=== PATIENT | female | born 1985 | race African-American/Black ===

== ENCOUNTER 2022-06-22 21:23 | Emergency (ER) | payer SELFPAY ==
[~2022-06-22] VITALS: Ht 162.6 cm; Wt 108.9 kg
--- NOTE | 2022-06-22 21:54 | NUR ---
Dr Mcnally at bedside for MSE.
[2022-06-22] MEDS ORDERED: HYDROMORPHONE 1 MG/1 ML DISP.SYRIN IV ONE (22:00)
[2022-06-22] MEDS ORDERED: ONDANSETRON 4 MG/2 ML VIAL IV ONE (22:00)
[2022-06-22] MEDS ORDERED: ONDANSETRON 4 MG/2 ML VIAL ONE (22:15)
[2022-06-22] MEDS ORDERED: HYDROMORPHONE 1 MG/1 ML DISP.SYRIN ONE (22:15)
--- NOTE | 2022-06-22 22:22 | NUR ---
patient taken to CT
--- NOTE | 2022-06-22 22:22 | NUR ---
Patient taken to CT via gurney.
[2022-06-22 22:29] LABS: *BILIRUBIN,URIN NEGATIVE (NEGATIVE); *CLARITY,URINE CLEAR (CLEAR); *COLOR,URINE YELLOW (YELLOW); *KETONES,URINE TRACE (NEGATIVE); *UROBILINOGEN,URINE 0.2 E.U./dl (NORMAL); LEUKOCYTE ESTERASE ,URINE NEGATIVE (NEGATIVE); NITRITE, URINE NEGATIVE (NEGATIVE); PH,URINE 5.5 (5.0-8.0); UGLUCOSE NEGATIVE (NEGATIVE)
[2022-06-22 22:30] LABS: CREATININE 0.7 mg/dL (0.6-1.3); POTASSIUM 3.3 mmol/L (3.5-5.1)
[2022-06-22 22:31] LABS: *BLOOD, URINE TRACE INTACT (NEGATIVE); *URINE HCG, QUAL NEGATIVE (NEGATIVE)
[2022-06-22 22:34] LABS: HEMATOCRIT 31.9 % (31.2-41.9); MEAN CORPUSCULAR HEMOGLOBIN 25.2 uug (24.7-32.8); MEAN CORPUSCULAR VOLUME 77.6 fL (75.5-95.3); PLATELET COUNT (AUTO) 405 K/uL (179-408)
[2022-06-22 22:35] LABS: BILIRUBIN,TOTAL 0.3 mg/dL (0.2-1.0); TOTAL PROTEIN, SERUM 7.3 g/dL (6.4-8.2)
[2022-06-22 22:38] LABS: BACTERIA,URINE NONE SEEN /HPF (NONE SEEN); SQUAMOUS EPITHELIAL CELL,UR FEW /HPF (NONE SEEN)
[2022-06-22] MEDS ORDERED: ONDA4TAB5 PO (23:26)
[2022-06-22] MEDS ORDERED: HYDR-4209 PO (23:26)
--- NOTE | 2022-06-22 23:33 | NUR ---
Patient discharged to home in stable condition. Written and verbal after care instructions given. Patient verbalizes understanding of instructions. Stressed follow up or return to ER for worsening s/s. Patient is a/ox4, NAD noted. Patient is able to walk with steady gait
[2022-06-22 23:34] VITALS: BP 118/78
== END 2022-06-22 23:35 | disposition home or self-care (01) ==
LOC: ER 21:29
DX: R10.9 Unspecified abdominal pain (principal); R80.9 Proteinuria, unspecified
CPT/HCPCS: 99284; 74176; 96374; 96375; 80053; 81001; 84703; 83690; 85025; 36415; 87040; J2405; J1170; A4663